=== PATIENT | female | born 1980 | race Caucasian/White ===

== ENCOUNTER 2017-06-23 14:10 | Emergency (ER) | payer OTHER ==
[2017-06-23 14:11] VITALS: BP 130/64; PULSE 79; RESP 16; TEMP 97.6; O2SAT 100
[2017-06-23] MEDS ORDERED: PRAD150C PO (15:18)
[2017-06-23 15:19] VITALS: BP 120/66; PULSE 79; RESP 16; O2SAT 100
[2017-06-23 15:47] LABS: AUTOMATED NEUTROPHIL # 5.1 TH/MM3 (1.8-7.7); BASOPHIL # 0.1 TH/MM3 (0-0.2); BASOPHIL % 0.8 % (0.0-2.0); EOSINOPHIL % 0.4 % (0.0-4.0); HEMATOCRIT 36.3 % (35.0-46.0); HEMOGLOBIN 12.2 GM/DL (11.6-15.3); LYMPH % 24.6 % (9.0-44.0); LYMPHOCYTE # 1.9 TH/MM3 (1.0-4.8); MEAN CELL VOLUME 77.9 FL (80.0-100.0); MEAN CORPUSCULAR HEMOGLOBIN 26.1 PG (27.0-34.0); MEAN CORPUSCULAR HGB CONC 33.5 % (32.0-36.0); MEAN PLATELET VOLUME 8.5 FL (7.0-11.0); MONO % 7.4 % (0.0-8.0); MONOCYTE # 0.6 TH/MM3 (0-0.9); NEUT % 66.8 % (16.0-70.0); PLATELET COUNT 273 TH/MM3 (150-450); RED BLOOD COUNT 4.66 MIL/MM3 (4.00-5.30); RED CELL DISTRIBUTION WIDTH 15.8 % (11.6-17.2); WHITE BLOOD COUNT 7.6 TH/MM3 (4.0-11.0)
--- NOTE | 2017-06-23 15:47 | PD ---
HPI Chief Complaint: Edema Time Seen by Provider: 15:12 Travel History International Travel<30 days: No Contact w/Intl Traveler<30days: No Traveled to known affect area: No History of Present Illness HPI 37-year-old female presents to emergency department for evaluation of right arm pain and swelling. Patient denies any injury, trauma or fall. Patient states she was diagnosed with a DVT and multiple PEs last February. Patient states she has been hospitalized multiple times and needed a heparin drip and Lovenox injection and discharged on Pradaxa. Patient reports he had no major medical history prior to last February. 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 Patient states she has always been subtherapeutic even with a heparin drip but they discharged her anyway. Patient states she noticed her right arm swelling again last night. Patient reports no new chest pain. Patient states she always has a little bit of chest pain and is slightly short of breath. She denies any worsening or acute symptoms at this time. She denies any fever, chills, malaise, abdominal pain, nausea, vomiting, diarrhea, dysuria, hematuria. PFSH Past Medical History Deep Vein Thrombosis: Yes (RUE ) Respiratory: Yes (EXTENSIVE (OVER 20) BILAT PE UNKNOWN CAUSE FOLLOWING W/ DR. GOLDMAN AND MOUNA ) Tetanus Vaccination: > 5 Years Influenza Vaccination: No ?: Not LMP: 06/23/17 : 2 Para: 1 Miscarriage: 0 : 1 Tubal Ligation: Yes Past Surgical History Other Surgery: Yes (BILAT BREAST AUGMENTATION) Social History Alcohol Use: Yes (OCC) Tobacco Use: No Substance Use: No Allergies-Medications (Allergen,Severity, Reaction): Coded Allergies: acetaminophen (Unverified Allergy, Unknown, 06/23/17) hydrocodone (Unverified Allergy, Unknown, NAUSEA AND VOMITING, 06/23/17) oxycodone (Unverified Allergy, Unknown, 06/23/17) Reported Meds & Prescriptions Reported Meds & Active Scripts Active Reported Pradaxa (Dabigatran) 150 Mg Cap 150 Mg PO BID Review of Systems Except as stated in HPI: all other systems reviewed are Neg Physical Exam Narrative GENERAL: Well-nourished, well-developed 37-year-old female patient in no acute distress. Nontoxic appearing. SKIN: Focused skin assessment warm/dry. HEAD: Normocephalic. Atraumatic. EYES: No scleral icterus. No injection or drainage. NECK: Supple, trachea midline. No JVD or lymphadenopathy. CARDIOVASCULAR: Regular rate and rhythm without murmurs, gallops, or rubs. Radial pulses +2 bilaterally. RESPIRATORY: Breath sounds equal bilaterally. No accessory muscle use. GASTROINTESTINAL: Abdomen soft, non-tender, nondistended. MUSCULOSKELETAL: Full range of motion of right upper extremity. No ecchymosis, erythema, cyanosis, or edema noted. BACK: Nontender without obvious deformity. No CVA tenderness. Data Data Last Documented VS Vital Signs Date Time Temp Pulse Resp B/P (MAP) Pulse Ox O2 Delivery O2 Flow Rate FiO2 06/23/17 17:03 06/23/17 17:01 71 14 100 Room Air 06/23/17 14:11 97.6 Orders Orders Electrocardiogram (06/23/17 15:22) Complete Blood Count With Diff (06/23/17 15:22) Basic Metabolic Panel (Bmp) (06/23/17 15:22) Creatine Kinase (Cpk) (06/23/17 15:22) Troponin I (06/23/17 15:22) Prothrombin Time / Inr (Pt) (06/23/17 15:22) Act Partial Throm Time (Ptt) (06/23/17 15:22) Iv Access Insert/Monitor (06/23/17 15:22) Ecg Monitoring (06/23/17 15:22) Oximetry (06/23/17 15:22) Us Arm Venous Doppler (06/23/17 15:22) Ed Discharge Order (06/23/17 16:56) Labs Laboratory Tests Test 06/23/17 15:30 White Blood Count 7.6 TH/MM3 Red Blood Count 4.66 MIL/MM3 Hemoglobin 12.2 GM/DL Hematocrit 36.3 % Mean Corpuscular Volume 77.9 FL Mean Corpuscular Hemoglobin 26.1 PG Mean Corpuscular Hemoglobin Concent 33.5 % Red Cell Distribution Width 15.8 % Platelet Count 273 TH/MM3 Mean Platelet Volume 8.5 FL Neutrophils (%) (Auto) 66.8 % Lymphocytes (%) (Auto) 24.6 % Monocytes (%) (Auto) 7.4 % Eosinophils (%) (Auto) 0.4 % Basophils (%) (Auto) 0.8 % Neutrophils # (Auto) 5.1 TH/MM3 Lymphocytes # (Auto) 1.9 TH/MM3 Monocytes # (Auto) 0.6 TH/MM3 Eosinophils # (Auto) 0.0 TH/MM3 Basophils # (Auto) 0.1 TH/MM3 CBC Comment DIFF FINAL Differential Comment Prothrombin Time 10.7 SEC Prothromb Time International Ratio 1.1 RATIO Activated Partial Thromboplast Time 25.8 SEC Blood Urea Nitrogen 7 MG/DL Creatinine 0.79 MG/DL Random Glucose 89 MG/DL Calcium Level 8.4 MG/DL Sodium Level 138 MEQ/L Potassium Level 3.5 MEQ/L Chloride Level 104 MEQ/L Carbon Dioxide Level 24.6 MEQ/L Anion Gap 9 MEQ/L Estimat Glomerular Filtration Rate 81 ML/MIN Total Creatine Kinase 110 U/L Troponin I LESS THAN 0.02 NG/ML MDM Medical Decision Making Medical Screen Exam Complete: Yes Emergency Medical Condition: Yes Interpretation(s) Pulse ox 100% on room air. Differential Diagnosis Differential diagnoses include but not limited to DVT, coagulopathy, edema, myalgia Narrative Course Patient place a monitor and IV obtained. Blood work sent to the lab. CBC, BMP , CK, troponin, PT/INR ordered and pending. Chest x-ray ordered and pending. EKG ordered and pending. Ultrasound of right upper extremity ordered and pending. Blood work shows no acute abnormality. Patient refused chest x-ray stating " you can't see a PE on chest x-ray and that's why I'm here". EKG shows sinus rhythm heart rate. Ultrasound of right upper extremity is negative for any DVT. Based on patient's symptoms, clinical presentation, lab results, radiological results, vital sign review and physical exam it is not necessary to admit the patient to the hospital or keep the patient in the emergency department for further evaluation. Patient will be discharged home with instructions to continue taking the Pradaxa, return to the emergency Department with any worsening condition and follow up with her primary care. Diagnosis Primary Impression: Myalgia Referrals: Primary Care Physician Additional Instructions: Please return to emergency department if your symptoms return or worsen. Follow up with your primary care provider. Disposition: 01 DISCHARGE HOME Condition: Stable Magali Eldridge [employer]POR[employer] CLAIMS EXAMINER Jun 23, 2017 15:47
[2017-06-23 15:56] LABS: INTERNATIONAL NORMALIZED RATIO 1.1 RATIO; PROTHROMBIN TIME - PATIENT 10.7 SEC (9.8-11.6)
--- NOTE | 2017-06-23 16:14 | RADRPT ---
EXAM DATE/TIME: 06/23/2017 15:31 [facility] COMPARISON: No previous studies available for comparison. INDICATIONS : Right arm swelling. MEDICAL HISTORY : DVT. Hx of bilateral PE. SURGICAL HISTORY : Tubal ligation. Breast augmentation. ENCOUNTER: Initial ACUITY: 1 day PAIN SCORE: 3/10 LOCATION: Right arm. FINDINGS: There is spontaneous flow documented in the brachial, basilic, cephalic, axillary, and subclavian vei ns. The vessels are compressible and augmentation response is documented. No filling defects are se en. The flow is phasic with respiration. Direction of flow in the jugular vein is caudal. CONCLUSION: 1. No sonographic evidence for right upper extremity DVT. Josue Olson MD on June 23, 2017 at 16:08 Board Certified Radiologist. This report was verified electronically.
[2017-06-23 16:18] LABS: BICARBONATE 24.6 MEQ/L (21.0-32.0); BLOOD UREA NITROGEN 7 MG/DL (7-18); CALCIUM 8.4 MG/DL (8.5-10.1); CHLORIDE 104 MEQ/L (98-107); CREATININE 0.79 MG/DL (0.50-1.00); GLOMERULAR FILTRATION RATE 81 ML/MIN (>89); GLUCOSE,RANDOM 89 MG/DL (74-106); SODIUM (NA) 138 MEQ/L (136-145)
[2017-06-23 16:22] LABS: TROPONIN I LESS THAN 0.02 NG/ML (0.02-0.05)
[2017-06-23 17:01] VITALS: BP 120/66; PULSE 71; RESP 14; O2SAT 100
--- NOTE | 2017-06-25 12:17 | EKG ---
Date Performed: 06/23/2017 Time Performed: 15:46:41 PTAGE: 37 years EKG: Sinus rhythm INCOMPLETE RIGHT BUNDLE BRANCH BLOCK BORDERLINE ECG NO PREVIOUS TRACING DOCTOR: Everette Payton Interpretating Date/Time 06/25/2017 12:15:56
== END 2017-06-23 17:15 | disposition home or self-care (01) ==
LOC: NEPC 14:10
DX: M79.1 Myalgia (principal)
CPT/HCPCS: 80048; 82550; 84484; 85025; 85610; 85730; 93005; 93971; 99285